=== PATIENT | male | born 1960 | race Caucasian/White ===

== ENCOUNTER 2017-07-23 02:30 | Emergency (ER) | payer BC ==
[~2017-07-23 02:30] MED LIST: ASAB PO; C1 PO; COREG3 PO; FISH OIL1200 MG PO; LANTUSCART SC; LEVOTHROID125 MCG PO; MULTIVITAMI1 PO; NUTRA/PRO PO; PLAVIX PO; SACU1TAB PO
[2017-07-23 03:24] LABS: BASOPHILS 1.2 %; BASOPHILS ABSOLUTE 0.11 10/3/uL (0.0-0.16); EOSINOPHILS 1.5 %; EOSINOPHILS ABSOLUTE 0.13 10/3/uL (0.0-0.53); ER CBC TAT 0 Hrs 03 Mins; HEMATOCRIT 43.4 % (40.0-51.0); HEMOGLOBIN 14.8 g/dL (13.6-17.8); IMMATURE GRANULOCYTES 0.3 %; IMMATURE GRANULOCYTES ABSOLUTE 0.03 10/3/uL (0.0-0.11); LYMPHOCYTES 19.6 %; LYMPHOCYTES ABSOLUTE 1.73 10/3/uL (0.67-4.30); MANUAL DIFF NO %; MEAN CORPUS HGB CONC 34.1 g/dL (32.0-36.0); MEAN CORPUSCULAR HEMOGLOB 28.6 pg (26.0-34.0); MEAN CORPUSCULAR VOLUME 83.9 fL (80-100); MEAN PLATELET VOLUME 11.4 fL (9.2-13.0); MONOCYTES 14.3 %; MONOCYTES ABSOLUTE 1.26 10/3/uL (0.21-1.20); NEUTROPHILS 63.1 %; NEUTROPHILS ABSOLUTE 5.56 10/3/uL (2.02-8.40); PLATELET COUNT 175 10/3/uL (150-400); RBC DISTRIBUTION WIDTH 14.3 % (12.0-16.0); RED CELL COUNT 5.17 10/6/uL (4.7-6.1); WHITE BLOOD CELLS 8.8 10/3/uL (4.5-10.5)
[2017-07-23 03:35] LABS: INTERNATIONAL NORMAL RATI 3.4 UNITS (-)
[2017-07-23 03:37] LABS: PROTIME (NOT ORD) 34.3 SEC (12.0-14.5)
[2017-07-23 04:09] LABS: BUN (BLOOD UREA NITROGEN) 15 MG/DL (6-23); CALCIUM, SERUM 9.1 MG/DL (8.5-10.4); CHLORIDE, SERUM 103 MMOL/L (96-112); CO2 (CARBON DIOXIDE) 28 MMOL/L (24-34); CREATININE 0.76 MG/DL (0.70-1.30); GFR AFRICAN AMERICAN 116 ML/MIN (>=60); GFR NON AFRICAN AMERICAN 100 ML/MIN (>=60); SODIUM, SERUM 139 MMOL/L (135-148)
[2017-07-23 04:10] LABS: GLUCOSE, SERUM 154 MG/DL (60-99)
[2017-07-23 04:24] LABS: WBC (NOT ORDERED) (RFLEX) 0 (0-5)
[2017-07-23 04:26] LABS: ASCORBIC ACID (UR NOT ORDER) NEG (NEG); BILIRUBIN, URINE NEGATIVE (NEG); ER URINALYSIS TAT 0 Hrs 02 Mins; KETONE, URINE NEGATIVE (NEG); LEUKOCYTE ESTERASE(NOT OR NEG (NEG); NITRITE (URINE) NEG (NEG)
== END 2017-07-23 05:04 | disposition home or self-care (01) ==
LOC: ER 02:30
PROVIDERS: Specialist
DX: R10.31 Right lower quadrant pain (principal); F17.200 Nicotine dependence, unspecified, uncomplicated; I25.2 Old myocardial infarction; I10 Essential (primary) hypertension; E11.9 Type 2 diabetes mellitus without complications; Z95.1 Presence of aortocoronary bypass graft; Z95.5 Presence of coronary angioplasty implant and graft; Z79.01 Long term (current) use of anticoagulants; Z79.82 Long term (current) use of aspirin; Z79.899 Other long term (current) drug therapy
CPT/HCPCS: 74176; 80048; 81001; 85025; 85610; 85730; 96374; 96375; 99284; J2405